=== PATIENT | female | born 1970 | race Caucasian/White ===

== ENCOUNTER 2023-10-14 10:35 | Emergency (ER) | payer MEDICAID, OTHER ==
[2023-10-14] MEDS: cloNIDine 0.1 MG Tab PO ONE (11:40)
[2023-10-14 11:44] LABS: BASOPHILS ABSOLUTE AUTO 0.03 K/uL (0.00-0.10); BASOPHILS PERCENT AUTO 0.5 % (0.1-1.3); EOSINOPHILS ABSOLUTE AUTO 0.05 K/uL (0.00-0.40); EOSINOPHILS PERCENT AUTO 0.8 % (0.0-5.4); HEMOGLOBIN 11.2 g/dL (11.2-15.5); IMMATURE GRAN PERCENT AUTO 0.3 % (0.0-0.7); LYMPHOCYTES ABSOLUTE AUTO 0.86 K/uL (0.8-3.3); LYMPHOCYTES PERCENT AUTO 13.5 % (11.4-47.7); MEAN CORPUSCULAR HEMOGLOBIN 28.4 pg (31.6-35.5); MEAN CORPUSCULAR HGB CONC 32.9 g/dL (31.6-35.5); MEAN CORPUSCULAR VOLUME 86.1 fL (81.4-99.0); MONOCYTES ABSOLUTE AUTO 0.44 K/uL (0.20-0.90); MONOCYTES PERCENT AUTO 6.9 % (3.3-12.6); NEUTROPHILS ABSOLUTE AUTO 4.99 K/uL (1.0-7.6); PLATELET COUNT,PLT 274 K/uL (130-375); RED BLOOD CELL COUNT 3.95 M/uL (3.77-5.24); WHITE BLOOD CELL COUNT,WBC 6.4 K/uL (3.2-11.0)
[2023-10-14 11:54] LABS: IMMATURE GRAN ABSOLUTE AUTO 0.02 K/uL (0.00-0.23)
[2023-10-14 12:05] LABS: A/G RATIO 1.1 (1.2-2.2); ALANINE AMINOTRANSFERASE,ALT 30 U/L (12-78); ALBUMIN 3.9 g/dL (3.4-5.0); ALKALINE PHOSPHATASE 56 U/L (46-116); ANION GAP 10.4 mmol/L (5.0-14.0); ASPARTATE AMNIOTRANSFERASE,AST 20 U/L (15-37); BILIRUBIN TOTAL 0.2 mg/dL (0.2-1.0); BLOOD UREA NITROGEN,BUN 13 mg/dL (7-18); CALCIUM 9.3 mg/dL (8.5-10.1); CARBON DIOXIDE,CO2 24 mmol/L (21-32); CHLORIDE,CL 106 mmol/L (100-108); EST CRCL DRUG DOSING (CG) 57.47 mL/min; ESTIMATED GFR 68 mL/min (>60); GLUCOSE RANDOM 110 mg/dL (74-106); POTASSIUM,K 4.1 mmol/L (3.6-5.2); PROTEIN TOTAL,TP 7.5 g/dL (6.4-8.2); SODIUM,NA 140 mmol/L (140-148)
[2023-10-14] MEDS: Enalaprilat 1.25 MG/ML SDV IVPUSH ONE (13:08)
[2023-10-14 13:20] LABS: APPEARANCE,URINE SLIGHTLY CLOUDY (CLEAR); BILIRUBIN,URINE NEGATIVE (NEGATIVE); COLOR,URINE YELLOW (YELLOW); GLUCOSE,URINE NEGATIVE (NEGATIVE); KETONES,URINE TRACE mg/dL (NEGATIVE); LEUKOCYTE ESTERASE,URINE NEGATIVE (NEGATIVE); NITRITE,URINE POSITIVE (NEGATIVE); OCCULT BLOOD,URINE TRACE-INTACT (NEGATIVE); PROTEIN,URINE 30 mg/dL (NEGATIVE); UROBILINOGEN,URINE 0.2 EU/dL (0.2-1.0)
[2023-10-14 13:27] LABS: AMORPHOUS SEDIMENT,URINE NOT SEEN; BACTERIA,URINE MANY; EPITHELIAL CELLS,URINE NOT SEEN; MUCUS,URINE NOT SEEN; RBC,URINE NOT SEEN (0-5); WBC,URINE 0-5 (0-5)
[2023-10-14] MEDS: hydrALAZINE 20 MG/ML SDV IVPUSH ONE (15:20)
[2023-10-14] MEDS: Ketorolac 30 MG/ML SDV IVPUSH ONE (17:33)
[2023-10-14] MEDS: Sodium Chloride 0.9% 100 ML IV ONE (18:28)
[2023-10-14] MEDS: Iopamidol 612 MG/ML 100 ML Bottle IV ONE (18:28)
[2023-10-14] MEDS ORDERED: Naloxone 0.4 MG/ML SDV IVPUSH PRN (19:41)
[2023-10-14] MEDS: Sodium Chloride 0.9% 10 ML Syringe FLUSH ONE (19:58)
[2023-10-14] MEDS: fentaNYL 50 MCG/ML SDV IVPUSH ONE (19:58)
== END 2023-10-14 22:25 | disposition other institution (70) ==
LOC: JP.ED 10:35
DX: S79.911A Unspecified injury of right hip, initial encounter (principal); I10 Essential (primary) hypertension; Z90.49 Acquired absence of other specified parts of digestive tract; Z79.899 Other long term (current) drug therapy; X58.XXXA Exposure to other specified factors, initial encounter
CPT/HCPCS: 36415; 70450; 71045; 72192; 73502; 74174; 80053; 81001; 85025; 87086; 93005; 96374; 96375; 99285; A9270; J0360; J1885; J3010; J3490; Q9967; 87088; 87186

== ENCOUNTER 2025-04-12 15:21 | Emergency (ER) | payer MEDICAID, OTHER ==
[2025-04-12 17:07] LABS: BASOPHILS ABSOLUTE AUTO 0.03 K/uL (0.00-0.10); BASOPHILS PERCENT AUTO 0.4 % (0.1-1.3); EOSINOPHILS ABSOLUTE AUTO 0.07 K/uL (0.00-0.40); EOSINOPHILS PERCENT AUTO 0.9 % (0.0-5.4); IMMATURE GRAN ABSOLUTE AUTO 0.03 K/uL (0.00-0.23); IMMATURE GRAN PERCENT AUTO 0.4 % (0.0-0.7); LYMPHOCYTES ABSOLUTE AUTO 1.75 K/uL (0.8-3.3); LYMPHOCYTES PERCENT AUTO 22.1 % (11.4-47.7); MONOCYTES ABSOLUTE AUTO 0.77 K/uL (0.20-0.90); MONOCYTES PERCENT AUTO 9.7 % (3.3-12.6); NEUTROPHILS ABSOLUTE AUTO 5.28 K/uL (1.0-7.6); NEUTROPHILS PERCENT AUTO 66.5 % (40.0-78.1); PLATELET COUNT,PLT 314 K/uL (130-375); RED BLOOD CELL COUNT 2.67 M/uL (3.77-5.24); WHITE BLOOD CELL COUNT,WBC 7.9 K/uL (3.2-11.0)
[2025-04-12 17:25] LABS: INR 1.0
[2025-04-12 17:29] LABS: A/G RATIO 1.3 (1.2-2.2); ALANINE AMINOTRANSFERASE,ALT 35 U/L (12-78); ASPARTATE AMNIOTRANSFERASE,AST 21 U/L (15-37); BILIRUBIN TOTAL 0.3 mg/dL (0.2-1.0); BLOOD UREA NITROGEN,BUN 14 mg/dL (7-18); CARBON DIOXIDE,CO2 30 mmol/L (21-32); CHLORIDE,CL 95 mmol/L (100-108); CREATININE 0.9 mg/dL (0.6-1.0); EST CRCL DRUG DOSING (CG) 62.42 mL/min; ESTIMATED GFR 76 mL/min (>60); GLUCOSE RANDOM 103 mg/dL (74-106); PROTEIN TOTAL,TP 6.9 g/dL (6.4-8.2); SODIUM,NA 134 mmol/L (140-148)
[2025-04-12 17:41] LABS: POTASSIUM,K 2.4 mmol/L (3.6-5.2)
[2025-04-12] MEDS: NS + KCl 20mEq/L 1,000 ML IV SCH (18:09)
[2025-04-12 18:16] LABS: APPEARANCE,URINE SLIGHTLY CLOUDY (CLEAR); GLUCOSE,URINE NEGATIVE (NEGATIVE); OCCULT BLOOD,URINE LARGE (NEGATIVE)
[2025-04-12 18:24] LABS: SQUAMOUS EPITHELIAL CELLS,UR RARE /HPF; UROTHELIAL CELLS,URINE NOT SEEN /HPF
[2025-04-12] MEDS: Potassium Chloride 20 MEQ Tab.ER PO ONE (22:13)
== END 2025-04-12 22:25 | disposition home or self-care (01) ==
LOC: JP.ED 15:21
DX: N92.4 Excessive bleeding in the premenopausal period (principal); E86.0 Dehydration; Z90.49 Acquired absence of other specified parts of digestive tract; R82.90 Unspecified abnormal findings in urine; Z88.8 Allergy status to other drugs, medicaments and biological substances; Z79.82 Long term (current) use of aspirin
CPT/HCPCS: 36415; 76830; 80053; 81001; 85014; 85018; 85025; 85610; 86850; 86900; 86901; 87086; 87088; 87186; 96361; 96365; 96366; 99284; A9270; J3480; J7030